=== PATIENT | male | born 1950 | race Caucasian/White ===

== ENCOUNTER → 2024-06-01 | Outpatient (CLI) | payer MEDICAID ==
[2024-06-01 07:20] LABS: Basophils # (auto) 0 10 ^3/uL (0-0.2); Basophils % (auto) 0.8 % (0.0-2.0); Eosinophils # (auto) 0.1 10 ^3/uL (0-0.8); Eosinophils % (auto) 1.8 % (0.0-7.0); Hematocrit 45.8 % (41.0-53.0); Hemoglobin 15.9 g/dL (13.5-17.5); Lymphocytes # (auto) 2.1 10 ^3/uL (0.4-5.4); Lymphocytes % (auto) 33.5 % (10.0-50.0); Mean Corpuscular Hgb Conc. 34.6 g/dL (32.0-36.0); Mean Corpuscular Volume 83.6 fL (80.0-100.0); Monocytes # (auto) 0.6 10 ^3/uL (0-1.3); Neutrophils # (auto) 3.4 10 ^3/uL (1.6-8.6); Neutrophils % (auto) 53.9 % (37.0-80.0); Nucleated Red Blood Cells % 0.1 %; Platelet Count (auto) 238 10^3/uL (140-450); Red Blood Cells 5.48 10^6/uL (4.5-5.90); Red Cell Distribution Width 13.2 % (11.8-14.3); White Blood Cell 6.4 10^3/uL (4.4-10.8)
[2024-06-01 08:03] LABS: Creatinine, Urine 62.36 mg/dL (30.0-125.0)
[2024-06-01 08:08] LABS: Alanine Aminotransferase 20 U/L (7-40); Albumin 4.6 g/dL (3.2-4.8); Anion Gap 8 (5-15); Aspartate Aminotransferase 15 U/L (13-40); BUN/Creatinine Ratio 13.7 (10.0-20.0); Blood Urea Nitrogen 13 mg/dL (9-23); Carbon Dioxide 26 mmol/L (20-31); Potassium 4.5 mmol/L (3.5-5.1); Total Protein 7.6 g/dL (5.7-8.2)
[2024-06-01 08:09] LABS: Alkaline Phosphatase 116 U/L (46-116); Bilirubin, Total 0.8 mg/dL (0.2-1.0); Chloride 98 mmol/L (98-107); Cholesterol 289 mg/dL (< 200); Glucose 369 mg/dL (74-106); HDL Cholesterol 39 mg/dL (40-59); Sodium 132 mmol/L (136-145); Triglycerides 567 mg/dL (< 150)
[2024-06-01 09:04] LABS: Folate (Folic Acid) 19.68 ng/mL (>5.38); T3 Total 1.21 ng/mL (0.60-1.81)
[2024-06-01 09:26] LABS: % Iron Saturation 46.3 % (20-55)
[2024-06-02 08:07] LABS: PSA Free 0.26 ng/mL; Prostate Specific Antigen 1.1 ng/mL (0.0-4.0); Thyroxine (T4) 9.1 ug/dL (4.5-12.0)
== END | disposition home or self-care (01) ==
LOC: LAB 06:52
PROVIDERS: ATTEND Pathology Anatomic Pathology & Clinical Pathology
DX: Z12.5 Encounter for screening for malignant neoplasm of prostate (principal); E11.69 Type 2 diabetes mellitus with other specified complication; E55.9 Vitamin D deficiency, unspecified; E03.5 Myxedema coma; E78.5 Hyperlipidemia, unspecified
CPT/HCPCS: 36415; 80053; 80061; 82043; 82306; 82570; 82607; 82728; 82746; 83036; 83540; 83550; 84154; 84436; 84443; 84480; 85025

== ENCOUNTER 2024-09-27 06:04 | Outpatient (CLI) | payer MEDICAID ==
[2024-09-27 07:02] LABS: Alanine Aminotransferase 21 U/L (7-40); Albumin 4.4 g/dL (3.2-4.8); Alkaline Phosphatase 67 U/L (46-116); Anion Gap 7 (5-15); BUN/Creatinine Ratio 18.7 (10.0-20.0); Bilirubin, Total 0.7 mg/dL (0.2-1.0); Blood Urea Nitrogen 14 mg/dL (9-23); Calcium 10.2 mg/dL (8.7-10.4); Carbon Dioxide 28 mmol/L (20-31); Chloride 105 mmol/L (98-107); Cholesterol 136 mg/dL (< 200); Microalb/Creat Ratio, Urine 19.0; Potassium 4.1 mmol/L (3.5-5.1); Sodium 140 mmol/L (136-145); Total Protein 6.9 g/dL (5.7-8.2)
[2024-09-27 07:03] LABS: Glucose 107 mg/dL (74-106); HDL Cholesterol 35 mg/dL (40-59); Triglycerides 159 mg/dL (< 150)
== END 2024-09-27 17:00 | disposition home or self-care (01) ==
LOC: LAB 06:04
PROVIDERS: ATTEND Internal Medicine
DX: E11.69 Type 2 diabetes mellitus with other specified complication (principal); E78.5 Hyperlipidemia, unspecified
CPT/HCPCS: 36415; 80053; 80061; 82043; 82570; 83036